=== PATIENT | female | born 1990 | race Caucasian/White ===

== ENCOUNTER → 2023-08-12 12:04 | Outpatient (CLI) | payer BC, SELFPAY ==
[2023-08-12 12:55] LABS: Add Manual Diff / Slide Review NO; Basophils Absolute Auto 0 /uL (0-100); Basophils Percent Auto 0.5 % (0-2); Eosinophils Absolute Auto 0 /uL (0-450); Eosinophils Percent Auto 0.4 % (2-4); Hematocrit 36.1 % (36-46); Hemoglobin 12.6 g/dL (12.0-16.0); Lymphocytes Absolute Auto 1500 /uL (1100-4500); Lymphocytes Percent Auto 32.4 % (25-40); Mean Corpuscular HGB Conc 34.9 % (30-36); Mean Corpuscular Volume 94.4 fL (80-100); Monocytes Absolute Auto 500 /uL (0-900); Neutrophils Absolute Auto 2600 /uL (1500-7000); Neutrophils Percent Auto 55.7 % (50-75); Platelet Count 223 X10^3/uL (150-400); Red Blood Cell Count 3.82 X10^6/uL (4.0-5.2); Red Cell Distribution Width 11.6 % (11.6-14.8); White Blood Cell Count 4.7 X10^3/uL (4.5-11.0)
[2023-08-12 13:08] LABS: Iron 99 ug/dL (37-170)
[2023-08-12 13:11] LABS: Erythrocyte Sedimentation Rate 11 MM/HR (0-20)
[2023-08-12 13:12] LABS: Alanine Aminotransferase 17 IU/L (<35); Albumin 4.4 g/dL (3.5-5.0); Albumin Globulin Ratio 1.3 (1.0-2.8); Alkaline Phosphatase 40 U/L (38-126); Aspartate Aminotransferase 24 IU/L (14-36); BUN Creatinine Ratio 15.9 (6-22); Bilirubin Total 0.5 mg/dL (0.2-1.3); Blood Urea Nitrogen 10 mg/dL (7-17); C-Reactive Protein Quant 0.6 mg/dL (<1.0); Calcium 9.2 mg/dL (8.4-10.2); Carbon Dioxide 25 mmol/L (22-32); Chloride 103 mmol/L (98-107); Estimated Glomerular Filt Rate > 60 mL/min (>60); Globulin 3.3 g/dL (1.7-4.1); Glucose 93 mg/dL (70-100); HEMOLYSIS < 15 (0-50); Potassium 4.1 mmol/L (3.4-5.1); Sodium 138 mmol/L (137-145); Total Protein 7.7 g/dL (6.3-8.2)
[2023-08-12 13:17] LABS: Total Iron Binding Capacity 297 ug/dL (265-497)
[2023-08-12 13:27] LABS: Free T4, Direct Thyroxine 1.23 ng/dL (0.78-2.19)
[2023-08-12 13:41] LABS: Thyroid Stimulating Hormone 1.23 uIU/mL (0.47-4.68)
[2023-08-12 13:44] LABS: Ferritin 59 ng/mL (6-137)
[2023-08-18 17:36] LABS: ANA Screen, IFA Positive (.)
== END ==
PROVIDERS: Referring Provider Dermatology; Visit Provider Dermatology
DX: L65.9 Nonscarring hair loss, unspecified (principal)
CPT/HCPCS: 36415; 80053; 82728; 83540; 83550; 84439; 84443; 85025; 85651; 86038; 86140

== ENCOUNTER 2023-11-01 10:51 | Emergency (ER) | payer BC, SELFPAY ==
[2023-11-01 10:53] VITALS: BP 127/76; PULSE 103; RESP 15; TEMP 36.6; O2SAT 98; BMI 20.5
[2023-11-01 10:54] VITALS: BP 127/76; O2SAT 97
[2023-11-01 11:00] VITALS: BP 101/57; PULSE 105; O2SAT 97
--- NOTE | 2023-11-01 11:03 | DI.RAD.S_ITS ---
PROCEDURE: XR SOFT TISSUE NECK INDICATIONS: FOREIGN BODY SENSATION TECHNIQUE: 2 views of the neck were acquired. COMPARISON: None. FINDINGS: Airway: The airway appears patent. Soft tissues: Prevertebral soft tissues appear unremarkable. No definite soft tissue gas. Bones: No high-grade degenerative changes, fracture, or traumatic subluxation. IMPRESSION: Unremarkable radiographs of the neck. No definite radiopaque foreign body. Consider CT or endoscopy to further evaluate if necessary. Dictated by: Paras Dodson M.D. on 11/01/2023 at 11:26 Approved by: Paras Dodson M.D. on 11/01/2023 at 11:27
--- NOTE | 2023-11-01 11:04 | ED_ITS ---
HPI - General Adult General Chief complaint: Upper Respiratory Symptoms Stated complaint: feels like something stuck on her throat Time Seen by Provider: 11/01/23 10:52 Source: patient Mode of arrival: Ambulatory History of Present Illness HPI narrative: 23-year-old female presents for evaluation of possible neck foreign body. Patient states that last night she noticed a sore throat but went to bed as usual. This morning when she woke up her sore throat seemed worse and it seemed as though there was something stuck on the right side of her throat. She reports history of frequent strep pharyngitis when she was younger, but subsequ ently had tonsillectomy and has not had any problems with her tonsils since. Reports pain with swallowing. Related Data Allergies Allergy/AdvReac Type Severity Reaction Status Date / Time albuterol Allergy Verified 11/01/23 10:57 Review of Systems Review of Systems Narrative: See HPI Patient History Social History Smoking Status: Unknown if ever smoked Smoking Status: Unknown if ever smoked alcohol intake frequency: holidays/special occasions only Substance Use Type: does not use Exam Initial Vital Signs Initial Vital Signs: Vital Signs Temperature 97.9 F 11/01/23 10:53 Pulse Rate 103 H 11/01/23 10:53 Respiratory Rate 15 11/01/23 10:53 Blood Pressure 127/76 11/01/23 10:53 Pulse Oximetry 98 11/01/23 10:53 Oxygen Delivery Method Room Air 11/01/23 10:53 Const: Awake, alert, no acute distress, nontoxic appearing HEENT: Airway patent, mucous membranes moist, no pharyngeal erythema, edema, exudates, no uvular deviation, no adenopathy RESP: unlabored, clear bilaterally, no wheezing Skin: Warm, Dry, intact, no rashes Neuro: AO x3, CN II-XII grossly intact, moves all extremities Course Orders Ordered: Discontinued Medications Lidocaine HCl (Lidocaine Viscous 2% 15 Ml Solution) 15 ml PO NOW ONE Stop: 11/01/23 11:21 Last Admin: 11/01/23 11:56 Dose: 15 ml Documented By: VAMSHI Vital Signs Vital signs: Vital Signs - 8 hr 11/01/23 10:53 11/01/23 10:54 11/01/23 10:54 Temperature 97.9 F Pulse Rate 103 H Respiratory Rate 15 Blood Pressure 127/76 127/76 Pulse Oximetry 98 97 Oxygen Delivery Method Room Air 11/01/23 11:00 11/01/23 11:00 11/01/23 11:30 Temperature Pulse Rate 105 H 108 H Respiratory Rate Blood Pressure 101/57 L Pulse Oximetry 97 100 Oxygen Delivery Method 11/01/23 12:26 11/01/23 12:27 Temperature Pulse Rate 97 H Respiratory Rate Blood Pressure 106/70 Pulse Oximetry Oxygen Delivery Method Medical Decision Making MDM Narrative Medical decision making narrative: Sensation of foreign body. Physical exam is unremarkable with normal pharynx, no swelling or uvular deviation, no palpable masses in the neck or tracheal deviation. X-ray imaging negative for obvious narrowing or foreign body. Patient concerned that there may be something else in her throat that would not be detected by x-rays. I offered CT imaging if patient was very concerned about masses or infections, however patient declined stating that she would prefer to be discharged and would follow up. Discharge Plan Departure Patient Disposition: Home Clinical Impression: Pharyngitis Instructions: DI for Pharyngitis/Tonsillopharyngitis -- Adult Activity Restrictions/Additional Instructions: Your x-ray and physical exam today did not show any abnormalities. Your airway appears wide open and patent on x-ray imaging. After discussion a CT scan was declined. If you continued to have this sensation of foreign body I recommend following up with ENT or your primary care doctor. Referral is in your paperwork, please call for follow up appointment. Take Tylenol and ibuprofen as needed for pain, you may use saltwater gargles as needed for comfort. Referrals: Levon Joshi MD [Physician] - Miscellaneous,MD Tatianna [Primary Care Provider] - Stand Alone Forms: Patient Portal/API
[2023-11-01 11:30] VITALS: PULSE 108; O2SAT 100
[2023-11-01] MEDS: LIDOCAINE VISCOUS 2% 15 ML SOLUTION PO (11:56)
[2023-11-01 12:26] VITALS: PULSE 97
[2023-11-01 12:27] VITALS: BP 106/70
== END 2023-11-01 12:27 | disposition home or self-care (01) ==
PROVIDERS: Emergency Provider Emergency Medicine
DX: J02.9 Acute pharyngitis, unspecified (principal)
CPT/HCPCS: 70360; 99283